=== PATIENT | male | born 1960 | race Caucasian/White ===

== ENCOUNTER 2023-09-04 15:05 | Emergency (ER) | payer OTHER, MEDICAID ==
[~2023-09-04] VITALS: Ht 180.3 cm; Wt 104.8 kg
[2023-09-04 17:58] VITALS: BP 130/84; PULSE 66; RESP 16; TEMP 98.4; O2SAT 95
[2023-09-04] MEDS: TETRACAINE HCL 0.5% OPTH(EYE) SOLN 4ML RIGHTEYE ONE (17:58)
[2023-09-04] MEDS: FLUORESCEIN SOD OPTH TEST STRIP RIGHTEYE ONE (17:58)
[2023-09-04] MEDS ORDERED: ERY05OO OP (18:44)
== END 2023-09-04 19:09 | disposition home or self-care (01) ==
LOC: ER 15:05
DX: S05.01XA Injury of conjunctiva and corneal abrasion without foreign body, right eye, initial encounter (principal); Z88.6 Allergy status to analgesic agent; X58.XXXA Exposure to other specified factors, initial encounter; Y93.89 Activity, other specified; Y92.89 Other specified places as the place of occurrence of the external cause; Y99.8 Other external cause status